=== PATIENT | male | born 1965 | race Asian ===

== ENCOUNTER 2020-02-23 21:16 | Inpatient (IN) | payer SELFPAY ==
[~2020-02-23] VITALS: Ht 152.4 cm; Wt 50.0 kg
[2020-02-23] MEDS ORDERED: fentaNYL/PF 50MCG/1 ML 2ML syringe IV ONE (21:55)
[2020-02-23] MEDS ORDERED: normal saline 1000ML IV soln IVB ONE (21:55)
[2020-02-23] MEDS ORDERED: clindamycin phosphate inj 600 MG in normal saline 50ml IV soln 50 ML IV ONE (21:55)
[2020-02-23] MEDS ORDERED: ondansetron/PF 4mg/2ml inj IV ONE (21:55)
[2020-02-23] MEDS ORDERED: clindamycin 600mg/D5W 50ml 50 ML IV ONE (22:00)
[2020-02-23 22:24] LABS: BASOPHILS # (AUTO) 0.1 X10'3 (0-0.2); BASOPHILS % (AUTO) 0.5 % (0-1); EOSINOPHILS % (AUTO) 0.1 % (0-6); HEMATOCRIT 46.5 % (42.0-52.0); HEMOGLOBIN 15.8 g/dl (14.0-17.9); LYMPHOCYTES # (AUTO) 0.6 X10'3 (1.1-4.8); LYMPHOCYTES % (AUTO) 5.2 % (21-51); MEAN CORPUSCULAR HEMOGLOBIN 28.8 PG (27.0-31.0); MEAN CORPUSCULAR HGB CONC 33.9 g/dL (33.0-36.5); MEAN CORPUSCULAR VOLUME 84.9 FL (78-98); MEAN PLATELET VOLUME 7.7 FL (7.4-10.4); MONOCYTES # (AUTO) 0.7 X10'3 (0-0.9); MONOCYTES % (AUTO) 5.7 % (2-12); NEUTROPHILS % (AUTO) 88.5 % (42-75); PLATELET COUNT 130 X10'3 (140-440); RED BLOOD COUNT 5.47 X10'6 (4.70-6.10); RED CELL DISTRIBUTION WIDTH 14.9 % (11.5-14.5); WHITE BLOOD COUNT 12.4 X10'3 (4.5-11.0)
[2020-02-23 22:35] LABS: ALANINE AMINOTRANSFERASE 66 U/L (12-78); ALBUMIN 2.8 G/DL (3.4-5.0); ALBUMIN/GLOBULIN RATIO 0.6 (1.1-1.5); ALKALINE PHOSPHATASE 199 IU/L (46-116); ANION GAP 14 (8-16); ASPARTATE AMINO TRANSFERASE 55 U/L (10-37); BILIRUBIN,TOTAL 1.7 MG/DL (0.1-1.0); BLOOD UREA NITROGEN 28 MG/DL (7-18); BUN/CREATININE RATIO 19.2 (5.4-32.0); CALCIUM 9.3 MG/DL (8.5-10.1); CHLORIDE 91 MMOL/L (99-107); CREATININE 1.46 MG/DL (0.60-1.10); GLUCOSE 408 MG/DL (70-104); POTASSIUM 3.2 MMOL/L (3.5-5.1); SODIUM 127 MMOL/L (135-145); TOTAL CARBON DIOXIDE 22.2 MMOL/L (24-32); TOTAL PROTEIN 7.3 G/DL (6.4-8.2); eGFR 51 ML/MIN
[2020-02-23] MEDS ORDERED: potassium Cl 20 mEq SR tablet PO STA (22:38)
[2020-02-23] MEDS ORDERED: potassium Cl 10 mEq/100mL bag IV ONE (22:40)
[2020-02-23] MEDS ORDERED: ketorolac trometh. 30mg/ml inj. IV ONE (23:10)
[2020-02-23] MEDS ORDERED: acetaminophen 325mg tablet PO ONE (23:10)
[2020-02-24] MEDS ORDERED: NO HOME MEDS (00:40)
[2020-02-24] MEDS ORDERED: morphine 2 MG/ML inj. syringe IV PRN (04:05)
[2020-02-24] MEDS ORDERED: potassium CL 10mEq/100ml bag 100 ML IV PRN ×2 (04:05)
[2020-02-24] MEDS ORDERED: potassium Cl 20 mEq SR tablet PO PRN ×2 (04:05)
[2020-02-24] MEDS ORDERED: ondansetron/PF 4mg/2ml inj IV PRN (04:05)
[2020-02-24] MEDS ORDERED: acetaminophen 325mg tablet PO PRN (04:05)
--- NOTE | 2020-02-24 07:09 | NUR ---
I have received report from ULI Bernstein and had the opportunity to ask questions and assume patient care.
--- NOTE | 2020-02-24 07:28 | NUR ---
Pt arrived to surgical flloor via wheelchair. Settled in room 345A, BLL, call light within reach, and rails up x2.
[2020-02-24 07:40] VITALS: BP 122/77
[2020-02-24] MEDS: normal saline 1000ml 1,000 ML IV SCH ×3 (07:57→19:33)
[2020-02-24] MEDS: morphine 2 MG/ML inj. syringe IV PRN ×3 (07:58→19:37)
[2020-02-24] MEDS ORDERED: sodium bicarbonate (8.4%) 1 mEq/ml syringe ONE (08:00)
[2020-02-24] MEDS ORDERED: atropine 1 MG/1 ML vial ONE (08:00)
[2020-02-24] MEDS ORDERED: calcium chloride 100 MG/1 ML inj IV ONE (08:00)
[2020-02-24] MEDS ORDERED: epiNEPHrine 0.1mg/ml 10ml syringe ONE (08:00)
[2020-02-24] MEDS ORDERED: etomidate 2mg/ml inj. ONE (08:00)
[2020-02-24] MEDS: K and/or MAG REPLACEMENT MC SCH ×2 (08:00→19:35)
[2020-02-24] MEDS: clindamycin 600mg/D5W 50ml 50 ML IV SCH ×3 (08:05→19:34)
[2020-02-24 11:00] VITALS: BP 88/61
[2020-02-24] MEDS ORDERED: dextrose 50%-water 50ml dispensing syringe IV PRN ×4 (14:05→16:10)
[2020-02-24] MEDS ORDERED: MESSAGE TO PHARMACY PO ONE ×2 (14:05→16:10)
[2020-02-24] MEDS ORDERED: glucagon, human recombinant 1mg kit SUBCUT PRN ×2 (14:05→16:10)
[2020-02-24] MEDS ORDERED: dextrose ORAL solution 15 GM/59 ML bottle PO PRN ×4 (14:05→16:10)
[2020-02-24] MEDS ORDERED: insulin Lispro (HumaLOG) vial - multi-dose SQ SCH (16:10)
[2020-02-24 18:00] VITALS: BP 104/66
--- NOTE | 2020-02-24 18:20 | NUR ---
Problems reprioritized. Patient report given, questions answered & plan of care reviewed with ULI Juarez.
--- NOTE | 2020-02-24 19:00 | NUR ---
I have received report from Lola MCNALLY and had the opportunity to ask questions and assume patient care.
[2020-02-24] MEDS: lactobacillus rhamnosus 10,000 MMU CELLS/CAPSULE PO SCH (19:35)
[2020-02-24] MEDS: insulin Lispro (HumaLOG) vial - multi-dose SQ SCH (19:39)
[2020-02-24] MEDS ORDERED: insulin glargine (Lantus) pen - multi-dose SQ SCH (21:00)
[2020-02-24] MEDS: insulin glargine (Lantus) pen - multi-dose SQ SCH (21:51)
[2020-02-24 22:04] LABS: CLARITY,URINE CLEAR (Clear); COLOR,URINE YELLOW (Yellow); GLUCOSE, URINE 250 mg/dl (Neg); KETONES,URINE TRACE mg/dl (Neg); LEUKOCYTE ESTERASE ,URINE NEGATIVE (Neg); NITRITES, URINE NEGATIVE (Neg); OCCULT BLOOD,URINE SMALL (Neg); PH,URINE 5.5 (4.8-8.0); PROTEIN,URINE 100 mg/dl (Neg)
[2020-02-24 22:10] LABS: UA COLLECTION TYPE CLN CATCH MIDSTREAM
[2020-02-24 22:15] LABS: SQUAMOUS EPITHELIAL CELL,UR MODERATE /LPF (FEW)
[2020-02-24 22:28] LABS: BACTERIA,URINE 3+ /HPF (Neg); RBC,URINE 0-2 /HPF (0-2); WBC CLUMPS,URINE FEW /HPF (NEGATIVE)
[2020-02-25] VITALS: BP 94/59
[2020-02-25] MEDS: clindamycin 600mg/D5W 50ml 50 ML IV SCH ×2 (01:33→07:24)
[2020-02-25] MEDS: morphine 2 MG/ML inj. syringe IV PRN ×5 (01:49→20:48)
[2020-02-25 01:54] VITALS: BP 106/64
[2020-02-25] MEDS: normal saline 1000ml 1,000 ML IV SCH ×2 (04:30→16:16)
[2020-02-25 05:41] LABS: ALANINE AMINOTRANSFERASE 102 U/L (12-78); ALBUMIN 1.8 G/DL (3.4-5.0); ALBUMIN/GLOBULIN RATIO 0.5 (1.1-1.5); ALKALINE PHOSPHATASE 315 IU/L (46-116); ANION GAP 13 (8-16); ASPARTATE AMINO TRANSFERASE 78 U/L (10-37); BASOPHILS % (AUTO) 0.2 % (0-1); BILIRUBIN,TOTAL 1.3 MG/DL (0.1-1.0); BLOOD UREA NITROGEN 28 MG/DL (7-18); BUN/CREATININE RATIO 21.9 (5.4-32.0); CHLORIDE 102 MMOL/L (99-107); CREATININE 1.28 MG/DL (0.60-1.10); EOSINOPHILS % (AUTO) 0.5 % (0-6); GLUCOSE 149 MG/DL (70-104); HEMATOCRIT 39.8 % (42.0-52.0); HEMOGLOBIN 13.6 g/dl (14.0-17.9); LYMPHOCYTES # (AUTO) 0.5 X10'3 (1.1-4.8); LYMPHOCYTES % (AUTO) 6.1 % (21-51); MEAN CORPUSCULAR HEMOGLOBIN 29.3 PG (27.0-31.0); MEAN CORPUSCULAR HGB CONC 34.2 g/dL (33.0-36.5); MEAN CORPUSCULAR VOLUME 85.6 FL (78-98); MONOCYTES # (AUTO) 0.6 X10'3 (0-0.9); MONOCYTES % (AUTO) 6.5 % (2-12); NEUTROPHILS # (AUTO) 7.7 X10'3 (1.8-7.7); NEUTROPHILS % (AUTO) 86.7 % (42-75); PLATELET COUNT 96 X10'3 (140-440); RED BLOOD COUNT 4.65 X10'6 (4.70-6.10); RED CELL DISTRIBUTION WIDTH 15.3 % (11.5-14.5); SODIUM 133 MMOL/L (135-145); TOTAL CARBON DIOXIDE 18.1 MMOL/L (24-32); TOTAL PROTEIN 5.7 G/DL (6.4-8.2); WHITE BLOOD COUNT 8.9 X10'3 (4.5-11.0); eGFR 59 ML/MIN
--- NOTE | 2020-02-25 06:09 | NUR ---
Problems reprioritized. Patient report given, questions answered & plan of care reviewed with Lola MCNALLY.
--- NOTE | 2020-02-25 06:25 | NUR ---
Patient in room JESIKA 345. I have received report from ULI Juarez and had the opportunity to ask questions and assume patient care.
[2020-02-25 07:00] VITALS: BP 98/60
[2020-02-25] MEDS: lactobacillus rhamnosus 10,000 MMU CELLS/CAPSULE PO SCH ×2 (07:24→20:48)
[2020-02-25] MEDS: K and/or MAG REPLACEMENT MC SCH ×2 (08:00→20:00)
[2020-02-25 08:17] LABS: TOTAL CELLS COUNTED 100
[2020-02-25 08:18] LABS: TOXIC GRANULATION 2+; TOXIC VACUOLATION FEW
[2020-02-25 08:22] LABS: POLYCHROMASIA FEW
[2020-02-25 08:25] LABS: PLATELET ESTIMATE DECREASED
[2020-02-25] MEDS ORDERED: pneumococcal 23-VAL P-sac vacc 25 mcg/0.5ml vial IMVAC ONE (10:00)
[2020-02-25] MEDS ORDERED: FLU VACC QS2020-21(6MOS UP)/PF 60 MCG/0.5 ML SYRINGE IMVAC ONE (10:00)
[2020-02-25 12:00] VITALS: BP 106/64
[2020-02-25] MEDS: vancomycin/NS 1 GM ADD-VANTAGE 250 ML X 1 DOSE IV SCH (12:03)
--- NOTE | 2020-02-25 14:39 | NUR ---
DM consult: A1c 10.8%. RD international sourcing manager met with pt at bedside for written/verbal DM ed. Pt reports he does not see PCP nor takes any home medications. Pt reports he does not know why he does not see anyone. Pt reports receiving DM ed prior roughly 3 years ago, however pt reports he "does not know anything" about DM and states he had eye surgery August/September of last year and "they" said his diabetes management was "OK", though pt would not elaborate on who "they" are. When asked if pt would like to go over DM information he requested for friend to be contacted who is able to help DM management. Per pt, friend does not live with pt but can assist with DM management. RD international sourcing manager d/w RN about pt DM status, reports pt stopped medications because he did not have a PCP 3 years ago contrary to pt report 1 year ago. DM ed and RD contact information left with patient, encouraged pt to please go over handout with friend and call with any questions he may have. Will remain available. Addendum: 02/25/20 at [address] Amended: Links added. Addendum: 02/25/20 at [address] I have reviewed and agree with note by Insurance Sales Supervisor. Una Murray RD
[2020-02-25] MEDS: piperacillin/tazo 3.375gm/50ml 50 ML IV SCH (16:16)
--- NOTE | 2020-02-25 18:45 | NUR ---
Problems reprioritized. Patient report given, questions answered & plan of care reviewed with ULI Morales.
--- NOTE | 2020-02-25 18:50 | NUR ---
Patient in room JESIKA 345. I have received report from AMALIA MCNALLY and had the opportunity to ask questions and assume patient care.
[2020-02-25 20:00] VITALS: BP 103/63
[2020-02-25] MEDS: insulin glargine (Lantus) pen - multi-dose SQ SCH (22:50)
[2020-02-26] VITALS (11 sets, daily range): BP systolic 92–124; BP diastolic 50–73
[2020-02-26] MEDS: piperacillin/tazo 3.375gm/50ml 50 ML IV SCH ×4 (00:30→23:58)
[2020-02-26] MEDS: normal saline 1000ml 1,000 ML IV SCH (02:13)
[2020-02-26] MEDS: morphine 2 MG/ML inj. syringe IV PRN ×4 (03:12→23:52)
[2020-02-26 06:00] LABS: BASOPHILS % (AUTO) 0.2 % (0-1); EOSINOPHILS # (AUTO) 0.1 X10'3 (0-0.9); EOSINOPHILS % (AUTO) 0.7 % (0-6); HEMATOCRIT 38.7 % (42.0-52.0); HEMOGLOBIN 12.9 g/dl (14.0-17.9); LYMPHOCYTES # (AUTO) 0.5 X10'3 (1.1-4.8); MEAN CORPUSCULAR HEMOGLOBIN 28.6 PG (27.0-31.0); MEAN CORPUSCULAR HGB CONC 33.4 g/dL (33.0-36.5); MEAN CORPUSCULAR VOLUME 85.7 FL (78-98); MEAN PLATELET VOLUME 7.9 FL (7.4-10.4); MONOCYTES # (AUTO) 0.7 X10'3 (0-0.9); MONOCYTES % (AUTO) 8.6 % (2-12); NEUTROPHILS # (AUTO) 7.3 X10'3 (1.8-7.7); NEUTROPHILS % (AUTO) 84.5 % (42-75); PLATELET COUNT 90 X10'3 (140-440); RED BLOOD COUNT 4.52 X10'6 (4.70-6.10); WHITE BLOOD COUNT 8.7 X10'3 (4.5-11.0)
--- NOTE | 2020-02-26 06:30 | NUR ---
Problems reprioritized. Patient report given, questions answered & plan of care reviewed with RACHEL MCNALLY.
[2020-02-26 06:33] LABS: ALANINE AMINOTRANSFERASE 72 U/L (12-78); ALBUMIN 1.4 G/DL (3.4-5.0); ALBUMIN/GLOBULIN RATIO 0.4 (1.1-1.5); ALKALINE PHOSPHATASE 484 IU/L (46-116); ANION GAP 20 (8-16); ASPARTATE AMINO TRANSFERASE 54 U/L (10-37); BILIRUBIN,TOTAL 1.2 MG/DL (0.1-1.0); BLOOD UREA NITROGEN 19 MG/DL (7-18); BUN/CREATININE RATIO 15.2 (5.4-32.0); CALCIUM 8.3 MG/DL (8.5-10.1); CHLORIDE 106 MMOL/L (99-107); CREATININE 1.25 MG/DL (0.60-1.10); GLUCOSE 95 MG/DL (70-104); POTASSIUM 3.8 MMOL/L (3.5-5.1); SODIUM 138 MMOL/L (135-145); TOTAL PROTEIN 5.4 G/DL (6.4-8.2); eGFR 61 ML/MIN
[2020-02-26 06:42] LABS: TOTAL CARBON DIOXIDE 12.4 MMOL/L (24-32)
--- NOTE | 2020-02-26 07:00 | NUR ---
PAGER ID: [phone] MESSAGE: [id number] Marie GREENE: PIERRE...CRITICAL CO2 .4. THANKS! RACHEL [id number]
[2020-02-26] MEDS: K and/or MAG REPLACEMENT MC SCH ×2 (08:00→20:00)
[2020-02-26] MEDS: lactobacillus rhamnosus 10,000 MMU CELLS/CAPSULE PO SCH ×2 (08:05→20:00)
[2020-02-26 08:34] LABS: ANISOCYTOSIS 1+; PLATELET ESTIMATE DECREASED; TOTAL CELLS COUNTED 100
[2020-02-26 08:35] LABS: POLYCHROMASIA FEW; TOXIC GRANULATION 2+
--- NOTE | 2020-02-26 12:00 | NUR ---
PAGER ID: [phone] MESSAGE: [id number] GREENE : CORRECTION, CO2 WAS 12.4. LACTIC JUST CAME BACK 2.9. HIS HEART RATE HAS BEEN 130'S ALL MORNING. OTHER VITALS STABLE. THANKS, RACHEL [id number]
[2020-02-26] MEDS: vancomycin/NS 1 GM ADD-VANTAGE 250 ML X 1 DOSE IV SCH (12:46)
[2020-02-26] MEDS: dextrose 5%-normal saline 1,000 ML IV SCH (12:47)
[2020-02-26] MEDS ORDERED: iohexol 300mg/ml 100ml inj. ONE (14:10)
--- NOTE | 2020-02-26 14:48 | NUR ---
PAGER ID: [phone] MESSAGE: Marie GREENEA: PATIENT BACK FROM CT SCAN. HR NOW 148. RR 30. O2 SAT 88%. THANKS! [id number]
--- NOTE | 2020-02-26 15:27 | NUR ---
PAGER ID: [phone] MESSAGE: Marie GREENEA: CT HAS RESULTED. THANKS! RACHEL [id number]
[2020-02-26] MEDS ORDERED: meperidine/PF 25mg/ml syringe IV PRN ×3 (16:35)
[2020-02-26] MEDS ORDERED: ringers solution, lacted 1,000 ML IV SCH (16:35)
[2020-02-26] MEDS ORDERED: morphine 2 MG/ML inj. syringe IV PRN (16:35)
[2020-02-26] MEDS ORDERED: morphine 4 MG/ML inj SYRINge IV PRN (16:35)
[2020-02-26] MEDS ORDERED: proCHLORperazine 10 MG/2 ml inj IV PRN (16:35)
[2020-02-26] MEDS ORDERED: ondansetron/PF 4mg/2ml inj IV PRN (16:35)
[2020-02-26 17:13] LABS: PARTIAL THROMBOPLASTIN TIME 37 SECONDS (22-32)
--- NOTE | 2020-02-26 18:36 | NUR ---
Problems reprioritized. Patient report given, questions answered & plan of care reviewed with ULI SANDOVAL.
--- NOTE | 2020-02-26 18:38 | NUR ---
Patient in room JESIKA 345. I have received report from DOROTHY MCNALLY and had the opportunity to ask questions and assume patient care. PATIENT IS READY FOR OR, WAITING FOR OR TECH TO PICK HIM UP.
--- NOTE | 2020-02-26 18:40 | NUR ---
PATIENT LEFT WITH IN A BED WITH OR TECH FOR OR.
[2020-02-26] MEDS ORDERED: fentaNYL/PF 50MCG/1 ML 2ML syringe ONE (18:44)
[2020-02-26] MEDS ORDERED: propofol inj 20 ML IV ONE (18:44)
[2020-02-26] MEDS ORDERED: LIDOcaine 2% (20mg/ml) 5ml vial ONE (18:44)
[2020-02-26] MEDS ORDERED: midazolam 2 mg/2 ml injection ONE (18:44)
[2020-02-26] MEDS ORDERED: sevoflurane 250ml liquid IH ONE (18:45)
[2020-02-26] MEDS ORDERED: neostigmine methylsulfate 1 MG/ML 10ml vial ONE (18:45)
[2020-02-26] MEDS ORDERED: morphine 4 MG/ML inj SYRINge ONE (19:37)
--- NOTE | 2020-02-26 20:15 | NUR ---
Received from OR via , accompanied by Anesthesiologist DR DIETZ and report given by Anesthesiolgist. PT IS SLEEPING AND NOT WAKING TO VOICE, SKIN WARM, LEFT ARM DRESSING COVERED IN MARY WRAP CD, LEFT HEEL COVERED IN AN ISLAND DRESSING, PIV RIGHT FA 20G, HR TACHY BUT OTHER VSS WNL.PT DOES NOT APPEAR IN ANY PAIN. Addendum: 02/26/20 at 2030 by Gregoria Peralta RN HEMOVAC DRAIN LEFT ARM WITH SANQ DRAINAGE
[2020-02-26 20:30] LABS: BASOPHILS % (AUTO) 0.2 % (0-1); EOSINOPHILS # (AUTO) 0.1 X10'3 (0-0.9); EOSINOPHILS % (AUTO) 0.5 % (0-6); HEMOGLOBIN 11.2 g/dl (14.0-17.9); LYMPHOCYTES # (AUTO) 0.5 X10'3 (1.1-4.8); LYMPHOCYTES % (AUTO) 4.2 % (21-51); MEAN CORPUSCULAR HEMOGLOBIN 28.2 PG (27.0-31.0); MEAN CORPUSCULAR HGB CONC 32.9 g/dL (33.0-36.5); MEAN CORPUSCULAR VOLUME 85.6 FL (78-98); MEAN PLATELET VOLUME 7.7 FL (7.4-10.4); MONOCYTES # (AUTO) 0.7 X10'3 (0-0.9); NEUTROPHILS # (AUTO) 10.7 X10'3 (1.8-7.7); NEUTROPHILS % (AUTO) 89.1 % (42-75); PLATELET COUNT 80 X10'3 (140-440); RED BLOOD COUNT 3.98 X10'6 (4.70-6.10); RED CELL DISTRIBUTION WIDTH 15.8 % (11.5-14.5)
--- NOTE | 2020-02-26 20:45 | NUR ---
Report called to receiving nurse. PT WAS RECOVERED IN ICU. Special Issues communicated to receiving monica STOVER RN.PT IS SLEEPING WITH MILD SNORING RESP, NO INDICATION OF PAIN, SKIN WARM AND DRY, BILAT PEDAL PULSES WITH DOPPLER, BILAT HEELS WITH OPTIFOAM DRESSING, LEFT UE DRESSING CD, HEMOVAC DRAIN IN PLACE WITH SCANT SANQ DRAINAGE, PIV PATENT, SCDS ON, PT MEET DISCHARGE CRITERIA.
[2020-02-26 20:47] LABS: ALANINE AMINOTRANSFERASE 50 U/L (12-78); ALBUMIN 1.1 G/DL (3.4-5.0); ALBUMIN/GLOBULIN RATIO 0.3 (1.1-1.5); ALKALINE PHOSPHATASE 467 IU/L (46-116); ANION GAP 17 (8-16); ASPARTATE AMINO TRANSFERASE 41 U/L (10-37); BILIRUBIN,TOTAL 0.9 MG/DL (0.1-1.0); BLOOD UREA NITROGEN 15 MG/DL (7-18); BUN/CREATININE RATIO 11.1 (5.4-32.0); CALCIUM 7.6 MG/DL (8.5-10.1); CHLORIDE 112 MMOL/L (99-107); CREATININE 1.35 MG/DL (0.60-1.10); GLUCOSE 171 MG/DL (70-104); POTASSIUM 3.3 MMOL/L (3.5-5.1); SODIUM 143 MMOL/L (135-145); TOTAL PROTEIN 4.5 G/DL (6.4-8.2); eGFR 55 ML/MIN
[2020-02-26 20:50] LABS: TOTAL CARBON DIOXIDE 13.7 MMOL/L (24-32)
[2020-02-26] MEDS ORDERED: albumin (Human) 5% 250ml 250 ML IV ONE ×2 (21:00)
--- NOTE | 2020-02-26 21:30 | NUR ---
PATIENT DID NOT COME BACK TO SURGICAL FLOOR, WAS TRANSFERRED TO CICU FROM RECOVERY.
[2020-02-26] MEDS: insulin glargine (Lantus) pen - multi-dose SQ SCH (22:52)
[2020-02-26 23:36] LABS: ANION GAP 15 (8-16); BLOOD UREA NITROGEN 14 MG/DL (7-18); BUN/CREATININE RATIO 10.9 (5.4-32.0); CALCIUM 7.8 MG/DL (8.5-10.1); CHLORIDE 113 MMOL/L (99-107); CREATININE 1.28 MG/DL (0.60-1.10); GLUCOSE 231 MG/DL (70-104); POTASSIUM 3.5 MMOL/L (3.5-5.1); SODIUM 143 MMOL/L (135-145); eGFR 59 ML/MIN
[2020-02-26 23:37] LABS: TOTAL CARBON DIOXIDE 14.7 MMOL/L (24-32)
[2020-02-27] VITALS (15 sets, daily range): BP systolic 107–167; BP diastolic 58–89
[2020-02-27] MEDS: insulin Lispro (HumaLOG) vial - multi-dose SQ SCH ×3 (03:06→20:04)
[2020-02-27 05:21] LABS: BASOPHILS % (AUTO) 0.2 % (0-1); EOSINOPHILS # (AUTO) 0.2 X10'3 (0-0.9); EOSINOPHILS % (AUTO) 0.9 % (0-6); HEMOGLOBIN 12.2 g/dl (14.0-17.9); LYMPHOCYTES # (AUTO) 0.3 X10'3 (1.1-4.8); LYMPHOCYTES % (AUTO) 1.5 % (21-51); MEAN CORPUSCULAR HEMOGLOBIN 28.6 PG (27.0-31.0); MEAN CORPUSCULAR HGB CONC 32.9 g/dL (33.0-36.5); MEAN CORPUSCULAR VOLUME 86.9 FL (78-98); MEAN PLATELET VOLUME 8.4 FL (7.4-10.4); MONOCYTES # (AUTO) 0.7 X10'3 (0-0.9); MONOCYTES % (AUTO) 3.5 % (2-12); NEUTROPHILS # (AUTO) 19.6 X10'3 (1.8-7.7); NEUTROPHILS % (AUTO) 93.9 % (42-75); PLATELET COUNT 75 X10'3 (140-440); RED BLOOD COUNT 4.26 X10'6 (4.70-6.10); RED CELL DISTRIBUTION WIDTH 16.4 % (11.5-14.5); WHITE BLOOD COUNT 20.8 X10'3 (4.5-11.0)
[2020-02-27 05:32] LABS: ALANINE AMINOTRANSFERASE 56 U/L (12-78); ALBUMIN 1.9 G/DL (3.4-5.0); ALBUMIN/GLOBULIN RATIO 0.5 (1.1-1.5); ALKALINE PHOSPHATASE 439 IU/L (46-116); ANION GAP 14 (8-16); ASPARTATE AMINO TRANSFERASE 53 U/L (10-37); BILIRUBIN,TOTAL 1.2 MG/DL (0.1-1.0); BLOOD UREA NITROGEN 14 MG/DL (7-18); BUN/CREATININE RATIO 11.3 (5.4-32.0); CALCIUM 8.5 MG/DL (8.5-10.1); CHLORIDE 112 MMOL/L (99-107); CREATININE 1.24 MG/DL (0.60-1.10); GLUCOSE 244 MG/DL (70-104); MAGNESIUM 1.8 MG/DL (1.5-2.4); PHOSPHORUS 3.5 MG/DL (2.3-4.5); POTASSIUM 3.4 MMOL/L (3.5-5.1); SODIUM 143 MMOL/L (135-145); TOTAL CARBON DIOXIDE 17.2 MMOL/L (24-32); TOTAL PROTEIN 5.8 G/DL (6.4-8.2); eGFR 61 ML/MIN
--- NOTE | 2020-02-27 06:25 | NUR ---
Problems reprioritized. Patient report given, questions answered & plan of care reviewed with ULI Oseguera.
[2020-02-27] MEDS ORDERED: potassium Cl 20 mEq SR tablet PO PRN ×2 (06:40)
[2020-02-27 06:59] LABS: PLATELET ESTIMATE DECREASED; TOTAL CELLS COUNTED 100
[2020-02-27 07:00] LABS: ANISOCYTOSIS 1+; TOXIC GRANULATION 2+; TOXIC VACUOLATION FEW
[2020-02-27] MEDS: heparin, porcine 5000 units/ml vial SQ SCH ×2 (07:55→20:00)
[2020-02-27] MEDS ORDERED: K and/or MAG REPLACEMENT MC SCH (08:00)
[2020-02-27] MEDS: lactobacillus rhamnosus 10,000 MMU CELLS/CAPSULE PO SCH ×2 (08:00→19:52)
[2020-02-27] MEDS: potassium CL 10mEq/100ml bag 100 ML IV PRN ×4 (08:42→11:34)
[2020-02-27] MEDS: dextrose 5%-normal saline 1,000 ML IV SCH ×2 (09:01→19:51)
[2020-02-27] MEDS: morphine 2 MG/ML inj. syringe IV PRN ×2 (10:08→14:43)
[2020-02-27] MEDS: piperacillin/tazo 3.375gm/50ml 50 ML IV SCH (12:17)
[2020-02-27] MEDS: vancomycin/NS 1 GM ADD-VANTAGE 250 ML X 1 DOSE IV SCH (12:37)
--- NOTE | 2020-02-27 12:58 | NUR ---
Received report from ULI Oseguera in ICU. Awaiting patient arrival to room 3023A.
--- NOTE | 2020-02-27 12:59 | NUR ---
Problems reprioritized. Patient report given, questions answered & plan of care reviewed with Stormy MCNALLY.
--- NOTE | 2020-02-27 13:11 | NUR ---
Patient arrived to room 3023A via bed and was transferred to the other bed via slideboard. Vital signs are BP 162/89, HR 62, 92% on 3L nasal cannula, RR 25, temp 97.6, and pain 10/10. Bed locked and lowered, call light in reach and in no acute distress.
--- NOTE | 2020-02-27 13:19 | NUR ---
Pt transferred to 3023A with belongings, chart, and meds. Patient assisted into bed; tech and receiving RN at bedside. All belongings with patient; Clothes and cell phone.
[2020-02-27] MEDS ORDERED: ipratropium/albuterol 3ml nebule NEB PRN (15:50)
[2020-02-27] MEDS ORDERED: piperacillin/tazo 3.375gm/50ml 50 ML IV SCH (16:00)
[2020-02-27] MEDS ORDERED: ceFAZolin/D5W- 1GM premix 50 ML IV SCH (16:00)
--- NOTE | 2020-02-27 16:30 | NUR ---
Paged Dr. Burnett regarding gram positive cocci in clusters aerobic from right hand. PAGER ID: [phone] MESSAGE: [id number]. Her Isabela. Gram positive cocci in clusters aerobic right hand, 4th set. Thank you. Stormy MCNALLY x [phone]
--- NOTE | 2020-02-27 18:26 | NUR ---
Problems reprioritized. Patient report given, questions answered & plan of care reviewed with ULI Kim. Patient stable at transfer of care.
--- NOTE | 2020-02-27 18:48 | NUR ---
Patient in room PCU 3023. I have received report from Stormy Yoo RN and had the opportunity to ask questions and assume patient care.
[2020-02-27] MEDS: ipratropium/albuterol 3ml nebule NEB SCH ×2 (19:25→23:17)
--- NOTE | 2020-02-27 19:30 | NUR ---
Upon assessing pt, hemovac not attached to patient's left arm. 25 mL serosanguineous drainage noted. Will continue to monitor patient.
[2020-02-27] MEDS: insulin glargine (Lantus) pen - multi-dose SQ SCH (21:42)
[2020-02-28] VITALS (14 sets, daily range): BP systolic 115–176; BP diastolic 81–106
[2020-02-28] MEDS: ceFAZolin 2gm in dextrose, iso 50 ML IV SCH ×2 (00:01→10:38)
[2020-02-28] MEDS: morphine 2 MG/ML inj. syringe IV PRN (02:24)
[2020-02-28] MEDS: ipratropium/albuterol 3ml nebule NEB SCH ×3 (02:57→11:31)
--- NOTE | 2020-02-28 03:30 | NUR ---
Patient in room PCU 3023. I have received report from Judy MCNALLY. and had the opportunity to ask questions and assume patient care.
--- NOTE | 2020-02-28 03:40 | NUR ---
Problems reprioritized. Patient report given, questions answered & plan of care reviewed with Deon RN.
--- NOTE | 2020-02-28 06:26 | NUR ---
Problems reprioritized. Patient report given, questions answered & plan of care reviewed with Hermelinda MCNALLY.
--- NOTE | 2020-02-28 06:32 | NUR ---
Patient in room PCU 3023. I have received report from [facility] and had the opportunity to ask questions and assume patient care.
[2020-02-28 06:38] LABS: HIV ANTIBODY 1&2 RAPID NON-REACTIVE (Neg)
[2020-02-28 07:09] LABS: EOSINOPHILS % (AUTO) 0 % (0-6); HEMOGLOBIN 10.8 g/dl (14.0-17.9); WHITE BLOOD COUNT 14.5 X10'3 (4.5-11.0)
[2020-02-28 07:11] LABS: BASOPHILS % (AUTO) 0 % (0-1); HEMATOCRIT 33.2 % (42.0-52.0); LYMPHOCYTES # (AUTO) 0.1 X10'3 (1.1-4.8); MEAN CORPUSCULAR HEMOGLOBIN 28.9 PG (27.0-31.0); MEAN CORPUSCULAR HGB CONC 32.6 g/dL (33.0-36.5); MEAN CORPUSCULAR VOLUME 88.6 FL (78-98); MEAN PLATELET VOLUME 7.9 FL (7.4-10.4); MONOCYTES # (AUTO) 0.4 X10'3 (0-0.9); MONOCYTES % (AUTO) 2.5 % (2-12); NEUTROPHILS % (AUTO) 96.5 % (42-75); PLATELET COUNT 75 X10'3 (140-440); RED BLOOD COUNT 3.75 X10'6 (4.70-6.10)
--- NOTE | 2020-02-28 07:11 | NUR ---
PAGER ID: [phone] MESSAGE: Good morning, Hermelinda on tele, Mr. Mar in [id number], HR has been 120s - 130s
[2020-02-28 07:18] LABS: ALANINE AMINOTRANSFERASE 71 U/L (12-78); ALBUMIN 1.5 G/DL (3.4-5.0); ALBUMIN/GLOBULIN RATIO 0.4 (1.1-1.5); ALKALINE PHOSPHATASE 690 IU/L (46-116); ANION GAP 17 (8-16); ASPARTATE AMINO TRANSFERASE 103 U/L (10-37); BILIRUBIN,TOTAL 0.9 MG/DL (0.1-1.0); BLOOD UREA NITROGEN 16 MG/DL (7-18); CALCIUM 8.1 MG/DL (8.5-10.1); CHLORIDE 116 MMOL/L (99-107); CREATININE 1.23 MG/DL (0.60-1.10); MAGNESIUM 1.5 MG/DL (1.5-2.4); PHOSPHORUS 1.3 MG/DL (2.3-4.5); SODIUM 147 MMOL/L (135-145); TOTAL PROTEIN 5.7 G/DL (6.4-8.2); eGFR 62 ML/MIN
[2020-02-28 07:20] LABS: GLUCOSE 684 MG/DL (70-104); POTASSIUM 2.4 MMOL/L (3.5-5.1); TOTAL CARBON DIOXIDE 14.2 MMOL/L (24-32)
[2020-02-28] MEDS ORDERED: amiodarone/D5 360MG/200ML BAG 200 ML IV SCH (07:20)
[2020-02-28] MEDS ORDERED: amiodarone 150mg/dext, iso-os 100 ML IV ONE (07:20)
--- NOTE | 2020-02-28 07:22 | NUR ---
PAGER ID: [phone] MESSAGE: Hermelinda Cordova on tele, Mr. Mar in 3023A, BG [phone], K of 2.4. CO2 14.2
[2020-02-28] MEDS ORDERED: potassium Cl 20 mEq SR tablet PO PRN ×2 (07:25)
[2020-02-28] MEDS ORDERED: Neutra Phos packet PO PRN (07:25)
[2020-02-28] MEDS ORDERED: sodium phosphate inj. 15 MMOL in dextrose 5%-water 250 ML IV PRN (07:25)
[2020-02-28] MEDS ORDERED: insulin regular, human U-100 3ml vial - multi-dose IV PRN (07:25)
[2020-02-28] MEDS ORDERED: potassium CL 10mEq/100ml bag 100 ML IV PRN ×2 (07:25)
[2020-02-28] MEDS ORDERED: potassium CL 20mEq in D5-1/2NS 1,000 ML IV PRN (07:25)
[2020-02-28] MEDS ORDERED: sodium bicarbonate (8.4%) inj. 50 MEQ in dextrose 5% water 500ml 250 ML IV PRN (07:25)
[2020-02-28] MEDS ORDERED: sodium phosphate inj. 30 MMOL in dextrose 5%-water 250 ML IV PRN (07:25)
[2020-02-28] MEDS ORDERED: Insulin Reg/NS 100units/100mL 100 ML IV SCH (07:25)
[2020-02-28] MEDS ORDERED: normal saline 1000ml 1,000 ML IV SCH (07:25)
[2020-02-28] MEDS ORDERED: sodium bicarbonate (8.4%) inj. 100 MEQ in dextrose 5% water 500ml 500 ML IV PRN (07:25)
[2020-02-28] MEDS: normal saline 1000ml 1,000 ML IV SCH ×2 (07:55→10:37)
[2020-02-28 07:58] LABS: ANISOCYTOSIS 1+; PLATELET ESTIMATE DECREASED; TOTAL CELLS COUNTED 100; TOXIC GRANULATION 2+; TOXIC VACUOLATION 1+
[2020-02-28] MEDS ORDERED: K and/or MAG REPLACEMENT MC SCH (08:00)
[2020-02-28] MEDS: heparin, porcine 5000 units/ml vial SQ SCH (08:00)
[2020-02-28] MEDS: lactobacillus rhamnosus 10,000 MMU CELLS/CAPSULE PO SCH (08:00)
[2020-02-28 08:29] LABS: ALBUMIN 1.7 G/DL (3.4-5.0); ANION GAP 18 (8-16); BLOOD UREA NITROGEN 19 MG/DL (7-18); CALCIUM 8.8 MG/DL (8.5-10.1); CHLORIDE 112 MMOL/L (99-107); CREATININE 1.27 MG/DL (0.60-1.10); GLUCOSE 400 MG/DL (70-104); PHOSPHORUS 1.9 MG/DL (2.3-4.5); SODIUM 142 MMOL/L (135-145); eGFR 60 ML/MIN
[2020-02-28 08:33] LABS: POTASSIUM 2.7 MMOL/L (3.5-5.1); TOTAL CARBON DIOXIDE 12.1 MMOL/L (24-32)
[2020-02-28] MEDS: insulin Lispro (HumaLOG) vial - multi-dose SQ SCH ×2 (09:11→12:39)
[2020-02-28 09:15] LABS: ABG BASE EXCESS -12.6 mmol/L (-2.0-2.0); ABG HCO3 11.7 mmol/L (22.0-26.0); ABG OXYGEN SATURATION 92.1 % (94-97); ABG PCO2 (T) 23.8 mmHg (35.0-48.0); ABG PO2 (T) 62.8 mmHg (75.0-100.0); FCOHb 0.3 % (0.0-3.9); FLOW 4 L/min; FMetHb 0.3 % (0.0-1.5); FO2Hb 91.5 % (94-97); PATIENT TEMPERATURE 37.6; TOTAL HEMOGLOBIN 11.2 G/dl (14.0-18.0)
[2020-02-28] MEDS ORDERED: sodium bicarbonate (8.4%) inj. 100 MEQ in sodium chloride 0.45% 1,000 ML IV SCH (11:15)
[2020-02-28] MEDS ORDERED: amiodarone 200mg tablet PO SCH (11:30)
[2020-02-28] MEDS ORDERED: VANCOMYCIN LEVEL IV ONE (11:30)
[2020-02-28] MEDS ORDERED: furosemide 40mg/4ml inj IV ONE (11:45)
[2020-02-28] MEDS ORDERED: vancomycin/NS 1 GM ADD-VANTAGE 250 ML X 1 DOSE IV SCH (12:00)
[2020-02-28 12:18] LABS: ALBUMIN 1.6 G/DL (3.4-5.0); ANION GAP 18 (8-16); BLOOD UREA NITROGEN 20 MG/DL (7-18); BUN/CREATININE RATIO 15.3 (5.4-32.0); CALCIUM 8.3 MG/DL (8.5-10.1); CHLORIDE 115 MMOL/L (99-107); CREATININE 1.31 MG/DL (0.60-1.10); GLUCOSE 384 MG/DL (70-104); PHOSPHORUS 2.2 MG/DL (2.3-4.5); SODIUM 145 MMOL/L (135-145); eGFR 57 ML/MIN
[2020-02-28 12:21] LABS: POTASSIUM 2.8 MMOL/L (3.5-5.1); TOTAL CARBON DIOXIDE 12.5 MMOL/L (24-32)
--- NOTE | 2020-02-28 12:55 | NUR ---
Pt has been refusing bi-pap, continuously pulls at O2 tubing, refusing to maintain O2 tubing on, pt pulled piv out. Pt received phone call from friend while in room. Pt spoke to her a few minutes but asked RN to turn the phone off/disconnect call.
[2020-02-28 13:15] LABS: ABG BASE EXCESS -11.4 mmol/L (-2.0-2.0); ABG HCO3 13.6 mmol/L (22.0-26.0); ABG OXYGEN SATURATION 94.5 % (94-97); ABG PCO2 (T) 28.3 mmHg (35.0-48.0); ABG PO2 (T) 69.7 mmHg (75.0-100.0); FCOHb 0.1 % (0.0-3.9); FLOW 10 L/min; FMetHb 0.1 % (0.0-1.5); FO2Hb 94.3 % (94-97); TOTAL HEMOGLOBIN 12.5 G/dl (14.0-18.0)
--- NOTE | 2020-02-28 13:50 | NUR ---
Called report to ICU, spoke with radha Edward pt update Addendum: 02/28/20 at 1415 by Hermelinda Carl RN Pt transferred to ICU
[2020-02-28] MEDS ORDERED: etomidate 2mg/ml inj. IV ONE (14:15)
[2020-02-28] MEDS ORDERED: midazolam 2 mg/2 ml injection IV ONE (14:20)
[2020-02-28] MEDS ORDERED: fentaNYL/PF 50MCG/1 ML 2ML syringe IV PRN (14:20)
[2020-02-28] MEDS ORDERED: midazolam 100mg in NS 100ml 100 ML IV PRN (14:20)
[2020-02-28] MEDS ORDERED: FENTANYL-0.9 % NACL/PF 100 ML IV PRN (14:20)
[2020-02-28] MEDS ORDERED: midazolam 2 mg/2 ml injection ONE (14:22)
[2020-02-28 15:43] LABS: ALANINE AMINOTRANSFERASE 125 U/L (12-78); ALBUMIN 1.1 G/DL (3.4-5.0); ALBUMIN/GLOBULIN RATIO 0.3 (1.1-1.5); ALKALINE PHOSPHATASE 823 IU/L (46-116); ANION GAP 6 (8-16); ASPARTATE AMINO TRANSFERASE 323 U/L (10-37); BILIRUBIN,TOTAL 0.9 MG/DL (0.1-1.0); BLOOD UREA NITROGEN 20 MG/DL (7-18); BUN/CREATININE RATIO 16.3 (5.4-32.0); CHLORIDE 124 MMOL/L (99-107); CREATININE 1.23 MG/DL (0.60-1.10); GLUCOSE 353 MG/DL (70-104); PHOSPHORUS 6.5 MG/DL (2.3-4.5); POTASSIUM 5.4 MMOL/L (3.5-5.1); TOTAL CARBON DIOXIDE 37.6 MMOL/L (24-32); TOTAL PROTEIN 4.3 G/DL (6.4-8.2); eGFR 62 ML/MIN
--- NOTE | 2020-02-28 15:45 | NUR ---
Deputy Puckett with the fire ranger's office called to confirm that the patient is NOT a fire ranger's case.
[2020-02-28 15:48] LABS: CALCIUM 11.2 MG/DL (8.5-10.1)
[2020-02-28 15:51] LABS: SODIUM 168 MMOL/L (135-145)
--- NOTE | 2020-02-28 15:56 | NUR ---
[facility] at 1400 and was intubated by Dr. Toscano with 20 of atomidate and 5 of versed. Patient had positive breath sounds and color change was present. Patient was unable to maintain sats and HR began to drop despite bagging. Atropine given without effect and epinepherine was given immediately afterwards when there was no return of rhythm. Code was called and multiple rounds of epi, bicarb, calcium, CPR, and shocks were performed (see Code Sheet for official numbers). Patient was unable to achieve ROSC and was pronounced by Dr. Toscano at 1527. "Elizabeth" Maria Isabel Black, patient's daughter, was called and informed about patient's passing. Ms. Johnson asked that patient be released with all belongings (white shirt, white shoes, cellphone, two ID cards, and black sweat pants) to [facility] in [place]. Donor network was called, but due to positive blood cultures, patient was not a candidate (R# [id number]).
--- NOTE | 2020-02-28 16:38 | NUR ---
[facility] and [employer] [employer] [facility] [place] at bedside to take patient and belongings away.
[2020-02-29] MEDS ORDERED: mineral oil/petrolatum ophthal oint EACHEYE SCH (20:00)
== END 2020-02-28 16:50 | disposition expired | DRG 853 ==
LOC: ER 21:17 → ED HOLD 02-24 04:05 → SUR 3N 02-24 08:04 → PACU 02-26 19:01 → CICU 2S 02-26 20:05 → PCU 3S 02-27 13:33 → CICU 2S 02-28 14:19
PROVIDERS: ADMIT Internal Medicine; ATTEND Internal Medicine Critical Care Medicine
PROC: 3E0234Z Introduction of Serum, Toxoid and Vaccine into Muscle, Percutaneous Approach (ICD-10-PCS; 2020-02-25)
PROC: 3E02340 Introduction of Influenza Vaccine into Muscle, Percutaneous Approach (ICD-10-PCS; 2020-02-25)
PROC: 0R9M0ZZ Drainage of Left Elbow Joint, Open Approach (ICD-10-PCS; 2020-02-26)
PROC: 0R9K0ZZ Drainage of Left Shoulder Joint, Open Approach (ICD-10-PCS; 2020-02-26)
PROC: 0X9K0ZZ Drainage of Left Hand, Open Approach (ICD-10-PCS; 2020-02-26)
PROC: 0KB80ZZ Excision of Left Upper Arm Muscle, Open Approach (ICD-10-PCS; principal; 2020-02-26 18:45)
PROC: 5A0935A Assistance with Respiratory Ventilation, Less than 24 Consecutive Hours, High Flow/Velocity Cannula (ICD-10-PCS; 2020-02-28)
PROC: 5A12012 Performance of Cardiac Output, Single, Manual (ICD-10-PCS; 2020-02-28)
PROC: 0BH17EZ Insertion of Endotracheal Airway into Trachea, Via Natural or Artificial Opening (ICD-10-PCS; 2020-02-28)
PROC: 05HY33Z Insertion of Infusion Device into Upper Vein, Percutaneous Approach (ICD-10-PCS; 2020-02-28)
DX: A41.01 Sepsis due to Methicillin susceptible Staphylococcus aureus (principal); J96.00 Acute respiratory failure, unspecified whether with hypoxia or hypercapnia; E87.2 Acidosis; L02.414 Cutaneous abscess of left upper limb; L02.512 Cutaneous abscess of left hand; M00.9 Pyogenic arthritis, unspecified; N17.9 Acute kidney failure, unspecified; E87.1 Hypo-osmolality and hyponatremia; E87.3 Alkalosis; E87.6 Hypokalemia; R74.01 Elevation of levels of liver transaminase levels; R65.20 Severe sepsis without septic shock; Z20.828 Contact with and (suspected) exposure to other viral communicable diseases; M1A.9XX1 Chronic gout, unspecified, with tophus (tophi); E11.621 Type 2 diabetes mellitus with foot ulcer; E11.65 Type 2 diabetes mellitus with hyperglycemia; I46.9 Cardiac arrest, cause unspecified; L97.519 Non-pressure chronic ulcer of other part of right foot with unspecified severity; Z23 Encounter for immunization
CPT/HCPCS: 92950; 93306; 96365; 96375; 99285; Z7506; Z7508; 36415; 36600; 71045; 73130; 73201; 80048; 80053; 81001; 82803; 82948; 83036; 83605; 83735; 84100; 84145; 84439; 84443; 85007; 85018; 85025; 85610; 85730; 86703; 87040; 87070; 87075; 87077; 87081; 87088; 87186; 87635; 90732; 93005; 93308; 93971; 94640; 94760; 94799; A4618; A6222; A6223; A6446; A6449; A7000; G0378; J0171; J0461; J1815; J1885; J1940; J2001; J2250; J2270; J2405; J2543; J2704; J2710; J3010; J3370; J3480; J3490; J7030; J7042; J7120; P9045; Q2039; Q9967